=== PATIENT | male | born 1985 | race Caucasian/White ===

== ENCOUNTER 2022-06-21 14:44 | Emergency (ER) | payer MEDICARE, MEDICAID ==
[2022-06-21] MEDS ORDERED: Midazolam 1 MG/ML 2 ML SDV IV ONE (14:45)
[2022-06-21] MEDS ORDERED: Sodium Chloride 0.9% 1,000 ML IV ONE (14:45)
[2022-06-21] MEDS ORDERED: propofoL 100 ML IV ONE (14:45)
[2022-06-21] MEDS ORDERED: Propofol 200 MG/20 ML SDV IV ONE (14:45)
[2022-06-21] MEDS ORDERED: Phenylephrine 1% 10 MG/ML SDV IV ONE (14:45)
[2022-06-21] MEDS ORDERED: Sodium Chloride 0.9% 10 ML Syringe IV ONE (14:45)
[2022-06-21 15:26] LABS: ANION GAP 22.8 mEq/L (7-13); CHLORIDE,CL 104 mmol/L (98-107); ESTIMATED GFR 72 mL/min (>=60); SODIUM,NA 145 mmol/L (136-145)
[2022-06-21] MEDS ORDERED: Midazolam 1 MG/ML 2 ML SDV ONE (15:36)
[2022-06-21 15:37] LABS: AMPHETAMINES,URINE NEGATIVE (NEGATIVE); BARBITURATES,URINE NEGATIVE (NEGATIVE); BENZODIAZEPINE,URINE NEGATIVE (NEGATIVE); MDMA (ECSTASY), URINE NEGATIVE (NEGATIVE); METHADONE,URINE NEGATIVE (NEGATIVE); METHAMPHETAMINES,URINE NEGATIVE (NEGATIVE); OPIATES,URINE NEGATIVE (NEGATIVE); OXYCODONE,URINE NEGATIVE (NEGATIVE); PHENCYCLIDINE,URINE NEGATIVE (NEGATIVE); TCA,URINE NEGATIVE (NEGATIVE)
[2022-06-21 15:43] LABS: PTT,PARTIAL THROMBOPLSTIN TIME 32.8 SEC (22.0-34.0)
[2022-06-21 15:45] VITALS: BP 138/75; PULSE 125
== END 2022-06-21 17:37 ==
LOC: DL.ED 14:44
DX: T17.908A Unspecified foreign body in respiratory tract, part unspecified causing other injury, initial encounter (principal); R00.0 Tachycardia, unspecified; Z88.1 Allergy status to other antibiotic agents; Z91.040 Latex allergy status; Z88.5 Allergy status to narcotic agent; Z20.822 Contact with and (suspected) exposure to COVID-19
CPT/HCPCS: 36415; 43752; 51702; 71045; 80053; 80305-QW; 81001; 82947; 83735; 84484; 85025; 85610; 85730; 92950; 96360; 99285-25; J2250; J2370; J2704; J3490; J7030; U0002